=== PATIENT | female | born 1995 | race Caucasian/White ===

== ENCOUNTER 2018-03-30 08:26 | Day surgery (SDC) | payer OTHER ==
[2018-03-30] MEDS ORDERED: MIDAZOLAM 1 MG/ML 2 ML INJ (10:43)
[2018-03-30] MEDS ORDERED: CEFAZOLIN 1 GM INJ (10:43)
[2018-03-30] MEDS ORDERED: FENTAnyl 50 MCG/ML VIAL (10:43)
[2018-03-30] MEDS ORDERED: GLYCOPYRROLATE 0.4 MG INJ (10:43)
[2018-03-30] MEDS ORDERED: PROPOFOL 20 ML (10:43)
[2018-03-30] MEDS ORDERED: NEOSTIGMINE 3 MG/3 ML SYRINGE (10:43)
[2018-03-30] MEDS ORDERED: ROCURONIUM 50 MG INJ (10:43)
[2018-03-30] MEDS ORDERED: ONDANSETRON 4 MG INJ (10:43)
[2018-03-30] MEDS ORDERED: DEXAMETHASONE 4 MG/ML 1 ML INJ (10:44)
[2018-03-30] MEDS: LIDOCAINE 1%/EPI 30 ML INJ (11:12)
[2018-03-30] MEDS ORDERED: EPHEDrine SULFATE 50 MG/5 ML SYG IV (11:30)
[2018-03-30] MEDS ORDERED: FENTAnyl 50 MCG/ML VIAL IV ×3 (11:30)
[2018-03-30] MEDS ORDERED: HYDROmorphONE 1 MG/5 ML IV SYRINGE IV ×3 (11:30)
[2018-03-30] MEDS ORDERED: MIDAZOLAM 1 MG/ML 2 ML INJ IV (11:30)
[2018-03-30] MEDS ORDERED: ALBUTEROL 0.083% (NEB) 2.5 MG/3 ML AMP HHN (11:30)
[2018-03-30] MEDS ORDERED: ONDANSETRON 4 MG INJ IV (11:30)
[2018-03-30] MEDS ORDERED: hydrALAzine 20 MG INJ IV (11:30)
[2018-03-30] MEDS ORDERED: OXYCODONE/ACETAMINOPHEN (5/325) TAB PO ×2 (11:30)
[2018-03-30] MEDS ORDERED: MEPERIDINE 25 MG INJ IV (11:30)
[2018-03-30] MEDS ORDERED: DIPHENHYDRAMINE 50 MG INJ IV (11:30)
[2018-03-30] MEDS ORDERED: TRIMETHOBENZAMIDE 100 MG/ML VIAL IM (11:30)
[2018-03-30] MEDS ORDERED: IPRATROPIUM (NEB) 0.5 MG/2.5 ML AMP HHN (11:30)
[2018-03-30] MEDS ORDERED: LABETALOL HCL 20MG INJ IV (11:30)
== END 2018-03-30 13:10 | disposition home or self-care (01) ==
LOC: SDS 08:26
DX: Q38.1 Ankyloglossia (principal)
CPT/HCPCS: 41010; 84703